=== PATIENT | male | born 1985 | race Caucasian/White ===

== ENCOUNTER 2024-07-12 10:10 | Emergency (ER) | payer OTHER ==
[~2024-07-12] VITALS: Ht 180.3 cm; Wt 63.5 kg
[~2024-07-12 10:10] MED LIST: Augmentin 875-1 EACH PO; OXYC5 PO; PROM25 PO
[2024-07-12 10:27] VITALS: BP 126/86
== END 2024-07-12 12:12 | disposition home or self-care (01) ==
LOC: ER 10:10
DX: S52.572A Other intraarticular fracture of lower end of left radius, initial encounter for closed fracture (principal); W11.XXXA Fall on and from ladder, initial encounter
CPT/HCPCS: 73110; 99283-25